=== PATIENT | male | born 1975 | race Caucasian/White ===

== ENCOUNTER 2020-07-24 11:10 | Emergency (ER) | payer MEDICAID ==
[~2020-07-24] VITALS: Ht 167.6 cm; Wt 114.0 kg
[2020-07-24] VITALS (10 sets, daily range): BP systolic 171–186; BP diastolic 89–95
[2020-07-24 12:03] LABS: BASOPHILS % 0.3 % (0.0-2.0); EOSINOPHILS % 2.3 % (0.0-5.0); HEMATOCRIT. 29.7 % (42.0-52.0); LYMPHOCYTES % 19.9 % (20.0-50.0); MEAN CORPUSCULAR HEMOGLOBIN 30.4 pg (28.0-32.0); MEAN CORPUSCULAR VOLUME 89.7 fL (80.0-94.0); MEAN PLATELET VOLUME 8.5 fl (7.4-10.4); MONOCYTES % 8.6 % (2.0-8.0); NEUTROPHILS % 68.9 % (40.0-76.0); PLATELET 204 x1000/uL (130-400); RED BLOOD CELL COUNT 3.31 mill/uL (4.7-6.1); RED CELL DISTRIBUTION WIDTH 14.8 % (11.6-14.6)
[2020-07-24 12:10] LABS: CHLORIDE 108 mEq/L (98-107)
[2020-07-24] MEDS ORDERED: CEFAZOLIN 1000MG PREMIX 50 ML IV SCH (12:45)
[2020-07-24] MEDS ORDERED: CEFAZOLIN 1000MG PREMIX 50 ML IV ONE (12:53)
[2020-07-24] MEDS ORDERED: LIDOCAINE HCL/EPINEPHRINE 1%-EPI 1:100,000 20 ML VIAL ONE (12:55)
[2020-07-24] MEDS ORDERED: LIDOCAINE HCL 1% 20ML VIAL (Pyxis) INJ ONE (12:56)
[2020-07-24] MEDS ORDERED: SODIUM BICARBONATE 4% (2.4MEQ) 5ML VIAL IV ONE (12:56)
[2020-07-24] MEDS ORDERED: IOHEXOL-300 50 ML BOTTLE IV ONE (12:56)
[2020-07-24] MEDS ORDERED: FENTANYL CITRATE/PF 50MCG/ML 2ML VIAL ONE (13:00)
[2020-07-24] MEDS ORDERED: FENTANYL CITRATE/PF 50MCG/ML 2ML VIAL IV NR (13:00)
[2020-10-02] MEDS ORDERED: FERR325T6 PO (16:33)
[2020-10-02] MEDS ORDERED: ATOR40TA70 PO (16:33)
[2020-10-02] MEDS ORDERED: LISI40TA13 PO (16:33)
[2020-10-02] MEDS ORDERED: GABA-529 PO (16:33)
[2020-10-02] MEDS ORDERED: AMLO10TA80 PO (16:33)
[2020-10-02] MEDS ORDERED: ATEN50TA PO (16:33)
[2020-10-02] MEDS ORDERED: CALC667T6 PO (16:33)
== END 2020-07-24 18:48 | disposition home or self-care (01) ==
LOC: ER 11:10 → SUPCPDRO 20:29
DX: T82.514A Breakdown (mechanical) of infusion catheter, initial encounter (principal); E11.22 Type 2 diabetes mellitus with diabetic chronic kidney disease; I12.9 Hypertensive chronic kidney disease with stage 1 through stage 4 chronic kidney disease, or unspecified chronic kidney disease; N18.9 Chronic kidney disease, unspecified; Z20.822 Contact with and (suspected) exposure to COVID-19
CPT/HCPCS: 36415; 36558; 71045; 77001; 80053; 85025; 85610; 87426; 93005; 96365; 99285; C1750; C1769; J0690; J1642; J3010; J3490; Q9967; Z7610

== ENCOUNTER 2021-10-13 09:49 | Inpatient (IN) | payer MEDICAID, OTHER ==
[~2021-10-13] VITALS: Ht 165.1 cm; Wt 133.4 kg
[~2021-10-13 09:49] MED LIST: AMLO10TA80 PO; ATEN50TA PO; ATOR40TA70 PO; CALC667T6 PO; FERR325T6 PO; GABA-529 PO; LISI40TA13 PO
[2021-10-13 10:53] LABS: BASOPHILS % 0.3 % (0.0-2.0); EOSINOPHILS % 2.6 % (0.0-5.0); HEMATOCRIT. 28.9 % (42.0-52.0); HEMOGLOBIN. 9.3 g/dL (14.0-18.0); LYMPHOCYTES % 20.7 % (20.0-50.0); MEAN CORPUSCULAR HEMOGLOBIN 31.7 pg (28.0-32.0); MEAN CORPUSCULAR VOLUME 98.3 fL (80.0-94.0); MEAN PLATELET VOLUME 9.4 fl (7.4-10.4); MONOCYTES % 8.2 % (2.0-8.0); NEUTROPHILS % 68.2 % (40.0-76.0); PLATELET 154 x1000/uL (130-400); RED BLOOD CELL COUNT 2.94 mill/uL (4.7-6.1); RED CELL DISTRIBUTION WIDTH 15.5 % (11.6-14.6)
[2021-10-13] MEDS ORDERED: CEFAZOLIN 1000MG PREMIX 50 ML IV NR (11:00)
[2021-10-13 11:01] LABS: CHLORIDE 104 mEq/L (98-107); INR 1.1; PROTHROMBIN TIME 11.6 sec (9.6-11.0)
[2021-10-13] MEDS ORDERED: DEXTROSE 50% WATER 50ML SYRINGE IV ONE (11:30)
[2021-10-13] MEDS ORDERED: SODIUM BICARBONATE 8.4% 1 MEQ/ML 50ML SYR IV ONE (11:30)
[2021-10-13] MEDS ORDERED: ALBUTEROL (0.083%) 2.5MG/3ML NEB HHN ONE (11:30)
[2021-10-13] MEDS ORDERED: INSULIN REGULAR (HUMULIN R) 300UNITS/3ML VIAL IV ONE (11:30)
[2021-10-13] MEDS ORDERED: ALBUTEROL (0.083%) 2.5MG/3ML NEB HHN NR (12:00)
[2021-10-13] MEDS ORDERED: DEXTROSE 50% WATER 50ML SYRINGE IV NR (12:00)
[2021-10-13] MEDS ORDERED: INSULIN REGULAR (HUMULIN R) 300UNITS/3ML VIAL IV NR (12:00)
[2021-10-13] MEDS ORDERED: SODIUM BICARBONATE 8.4% 1 MEQ/ML 50ML SYR IV NR (12:00)
[2021-10-13] MEDS ORDERED: HEPARIN 1000 UNITS/ML 10ML ONE (12:45)
[2021-10-13 12:54] LABS: HEPATITIS B SURFACE ANTIGEN NEGATIVE
[2021-10-13] MEDS ORDERED: MAGNESIUM/ALUMINUM HYDROXIDE/SIMETHICONE 30ML UDC PO PRN (13:45)
[2021-10-13] MEDS ORDERED: DEXTROSE 50% WATER 50ML SYRINGE IV PRN (13:45)
[2021-10-13] MEDS ORDERED: IPRATROPIUM/ALBUTEROL 0.5-3(2.5)MG/3ML NEB NEB PRN (13:45)
[2021-10-13] MEDS ORDERED: ACETAMINOPHEN 325MG TABLET PO PRN ×2 (13:45)
[2021-10-13] MEDS ORDERED: ZOLPIDEM TARTRATE 5MG TABLET PO PRN (13:45)
[2021-10-13] MEDS ORDERED: GUAIFENESIN 200MG/10ML SUGAR FREE UDC PO PRN (13:45)
[2021-10-13] MEDS ORDERED: DOCUSATE SODIUM 100MG CAPSULE PO PRN (13:45)
[2021-10-13] MEDS ORDERED: DIPHENHYDRAMINE 50MG/ML VIAL IV PRN (13:45)
[2021-10-13] MEDS ORDERED: NITROGLYCERIN 0.4MG TABLET SL SL PRN (13:45)
[2021-10-13] MEDS ORDERED: CLONIDINE 0.1MG TABLET PO PRN (13:45)
[2021-10-13] MEDS ORDERED: ONDANSETRON HCL 4MG/2ML INJ IV PRN (13:45)
[2021-10-13] MEDS ORDERED: ENOXAPARIN 40MG/0.4ML SYR SUBCUT SCH (15:00)
[2021-10-13 15:10] LABS: LDL CHOLESTEROL 37 mg/dL (5-100)
[2021-10-13 15:11] LABS: CREATINE KINASE 307 IU/L (39-308)
[2021-10-13 15:12] LABS: HDL CHOLESTEROL 25 mg/dL (40-59)
[2021-10-13 15:17] LABS: CREATINE KINASE MB FRACTION 4.7 ng/mL (0.5-3.6)
[2021-10-13 15:19] LABS: TOTAL IRON BINDING CAPACITY 220 ug/dL (250-450)
[2021-10-13 16:01] LABS: FOLIC ACID (FOLATE) SERUM 8.8 ng/mL (>5.38)
[2021-10-13] MEDS: FAMOTIDINE 20MG TABLET PO SCH (16:32)
[2021-10-13] MEDS: BLOOD SUGAR DIAGNOSTIC STRIP TEST SCH ×2 (20:24→21:00)
[2021-10-13] MEDS: INSULIN LISPRO 100 UNITS/ML SUBCUT SCH ×2 (20:24→21:00)
[2021-10-13] MEDS: SEVELAMER CARBONATE 800 MG TABLET PO SCH (20:41)
[2021-10-13 22:00] VITALS: BP 159/71
[2021-10-14] VITALS (22 sets, daily range): BP systolic 116–174; BP diastolic 46–91
[2021-10-14 00:58] LABS: CREATINE KINASE MB FRACTION 4.7 ng/mL (0.5-3.6)
[2021-10-14] MEDS: BLOOD SUGAR DIAGNOSTIC STRIP TEST SCH ×4 (06:46→21:00)
[2021-10-14 07:23] LABS: BASOPHILS % 0.3 % (0.0-2.0); EOSINOPHILS % 2.1 % (0.0-5.0); HEMATOCRIT. 29.5 % (42.0-52.0); HEMOGLOBIN. 9.8 g/dL (14.0-18.0); LYMPHOCYTES % 16.9 % (20.0-50.0); MEAN CORPUSCULAR HEMOGLOBIN 32.4 pg (28.0-32.0); MEAN PLATELET VOLUME 9.6 fl (7.4-10.4); MONOCYTES % 9.5 % (2.0-8.0); NEUTROPHILS % 71.2 % (40.0-76.0); PLATELET 163 x1000/uL (130-400); RED BLOOD CELL COUNT 3.04 mill/uL (4.7-6.1); RED CELL DISTRIBUTION WIDTH 15.3 % (11.6-14.6)
[2021-10-14] MEDS: SEVELAMER CARBONATE 800 MG TABLET PO SCH ×3 (07:39→18:18)
[2021-10-14 07:49] LABS: CHLORIDE 105 mEq/L (98-107)
[2021-10-14 08:00] LABS: PHOSPHORUS 3.6 mg/dL (2.5-4.9)
[2021-10-14] MEDS: INSULIN LISPRO 100 UNITS/ML SUBCUT SCH ×4 (08:00→22:53)
[2021-10-14] MEDS ORDERED: CEFAZOLIN 1000MG PREMIX 50 ML IV NR (08:00)
[2021-10-14] MEDS ORDERED: ASPIRIN 325MG EC TABLET PO SCH (09:00)
[2021-10-14] MEDS: AMLODIPINE 10MG TABLET PO SCH (09:00)
[2021-10-14] MEDS: FAMOTIDINE 20MG TABLET PO SCH (09:00)
[2021-10-14] MEDS ORDERED: HEPARIN 1000 UNITS/ML 10ML ONE (10:16)
[2021-10-14] MEDS ORDERED: LIDOCAINE HCL 1% 20ML VIAL (Pyxis) INJ ONE (10:17)
[2021-10-14] MEDS ORDERED: FENTANYL CITRATE/PF 50MCG/ML 2ML VIAL ONE (10:25)
[2021-10-14] MEDS ORDERED: FENTANYL CITRATE/PF 50MCG/ML 2ML VIAL IV ONE (11:00)
[2021-10-14] MEDS ORDERED: HEPARIN SODIUM 1,000 UNIT/1ML VIAL IV NR (17:00)
[2021-10-15] VITALS (12 sets, daily range): BP systolic 101–174; BP diastolic 51–115
[2021-10-15] MEDS: BLOOD SUGAR DIAGNOSTIC STRIP TEST SCH ×4 (06:39→21:00)
[2021-10-15] MEDS: INSULIN LISPRO 100 UNITS/ML SUBCUT SCH ×4 (08:00→21:07)
[2021-10-15] MEDS: AMLODIPINE 10MG TABLET PO SCH (09:16)
[2021-10-15] MEDS: SEVELAMER CARBONATE 800 MG TABLET PO SCH ×3 (09:16→20:57)
[2021-10-15] MEDS: FAMOTIDINE 20MG TABLET PO SCH (09:16)
[2021-10-15 11:53] LABS: BASOPHILS % 0.4 % (0.0-2.0); EOSINOPHILS % 2.3 % (0.0-5.0); HEMATOCRIT. 27.3 % (42.0-52.0); HEMOGLOBIN. 9.1 g/dL (14.0-18.0); LYMPHOCYTES % 19.4 % (20.0-50.0); MEAN CORPUSCULAR HEMOGLOBIN 32.2 pg (28.0-32.0); MEAN CORPUSCULAR VOLUME 96.4 fL (80.0-94.0); MEAN PLATELET VOLUME 9.3 fl (7.4-10.4); MONOCYTES % 9.4 % (2.0-8.0); NEUTROPHILS % 68.5 % (40.0-76.0); PLATELET 158 x1000/uL (130-400); RED BLOOD CELL COUNT 2.83 mill/uL (4.7-6.1); RED CELL DISTRIBUTION WIDTH 15.4 % (11.6-14.6)
[2021-10-16] VITALS (19 sets, daily range): BP systolic 93–154; BP diastolic 52–89
[2021-10-16] MEDS: BLOOD SUGAR DIAGNOSTIC STRIP TEST SCH ×4 (07:02→21:00)
[2021-10-16] MEDS: SEVELAMER CARBONATE 800 MG TABLET PO SCH ×3 (07:53→17:57)
[2021-10-16] MEDS: FAMOTIDINE 20MG TABLET PO SCH (07:53)
[2021-10-16] MEDS: AMLODIPINE 10MG TABLET PO SCH (07:54)
[2021-10-16 08:07] LABS: BASOPHILS % 0.2 % (0.0-2.0); EOSINOPHILS % 2.6 % (0.0-5.0); HEMATOCRIT. 28.5 % (42.0-52.0); HEMOGLOBIN. 9.5 g/dL (14.0-18.0); LYMPHOCYTES % 20.1 % (20.0-50.0); MEAN CORPUSCULAR HEMOGLOBIN 32.2 pg (28.0-32.0); MEAN CORPUSCULAR VOLUME 96.9 fL (80.0-94.0); MEAN PLATELET VOLUME 9.3 fl (7.4-10.4); MONOCYTES % 8.3 % (2.0-8.0); NEUTROPHILS % 68.8 % (40.0-76.0); PLATELET 162 x1000/uL (130-400); RED BLOOD CELL COUNT 2.94 mill/uL (4.7-6.1); RED CELL DISTRIBUTION WIDTH 15.2 % (11.6-14.6)
[2021-10-16] MEDS: INSULIN LISPRO 100 UNITS/ML SUBCUT SCH ×4 (08:11→21:04)
[2021-10-16] MEDS ORDERED: HEPARIN SODIUM 1,000 UNIT/1ML VIAL IV NR (11:17)
[2021-10-17] VITALS (8 sets, daily range): BP systolic 130–146; BP diastolic 67–109
[2021-10-17 06:28] LABS: BASOPHILS % 0.3 % (0.0-2.0); EOSINOPHILS % 2.5 % (0.0-5.0); HEMATOCRIT. 28.1 % (42.0-52.0); HEMOGLOBIN. 9.4 g/dL (14.0-18.0); LYMPHOCYTES % 17.7 % (20.0-50.0); MEAN CORPUSCULAR HEMOGLOBIN 32.4 pg (28.0-32.0); MEAN CORPUSCULAR VOLUME 96.8 fL (80.0-94.0); MONOCYTES % 9.2 % (2.0-8.0); NEUTROPHILS % 70.3 % (40.0-76.0); PLATELET 164 x1000/uL (130-400); RED BLOOD CELL COUNT 2.91 mill/uL (4.7-6.1); RED CELL DISTRIBUTION WIDTH 15.2 % (11.6-14.6)
[2021-10-17] MEDS: BLOOD SUGAR DIAGNOSTIC STRIP TEST SCH ×2 (07:02→12:22)
[2021-10-17] MEDS: AMLODIPINE 10MG TABLET PO SCH (09:01)
[2021-10-17] MEDS: INSULIN LISPRO 100 UNITS/ML SUBCUT SCH ×2 (09:01→13:23)
[2021-10-17] MEDS: FAMOTIDINE 20MG TABLET PO SCH (09:01)
[2021-10-17] MEDS: SEVELAMER CARBONATE 800 MG TABLET PO SCH ×2 (09:48→13:24)
== END 2021-10-17 16:00 | disposition home or self-care (01) | DRG 466 ==
LOC: ER 10:14 → 5EST 11:37 → ENRESERV 18:59 → EDBEDREQ 21:18 → EDBEDREQTM 21:18 → EDBEDREQ 21:19 → 5EST 23:28
PROVIDERS: ADMIT Internal Medicine; ATTEND Internal Medicine
PROC: 5A1D70Z Performance of Urinary Filtration, Intermittent, Less than 6 Hours Per Day (ICD-10-PCS; 2021-10-13)
PROC: 0JPV3XZ Removal of Tunneled Vascular Access Device from Upper Extremity Subcutaneous Tissue and Fascia, Percutaneous Approach (ICD-10-PCS; principal; 2021-10-14)
PROC: 0JH63XZ Insertion of Tunneled Vascular Access Device into Chest Subcutaneous Tissue and Fascia, Percutaneous Approach (ICD-10-PCS; 2021-10-14)
PROC: 02PYX3Z Removal of Infusion Device from Great Vessel, External Approach (ICD-10-PCS; 2021-10-14)
PROC: 02HV33Z Insertion of Infusion Device into Superior Vena Cava, Percutaneous Approach (ICD-10-PCS; 2021-10-14)
PROC: B518ZZA Fluoroscopy of Superior Vena Cava, Guidance (ICD-10-PCS; 2021-10-14)
PROC: B548ZZA Ultrasonography of Superior Vena Cava, Guidance (ICD-10-PCS; 2021-10-14)
PROC: 5A1D70Z Performance of Urinary Filtration, Intermittent, Less than 6 Hours Per Day (ICD-10-PCS; 2021-10-14)
DX: T82.41XA Breakdown (mechanical) of vascular dialysis catheter, initial encounter (principal); N18.6 End stage renal disease; I50.33 Acute on chronic diastolic (congestive) heart failure; E44.1 Mild protein-calorie malnutrition; E11.22 Type 2 diabetes mellitus with diabetic chronic kidney disease; D63.8 Anemia in other chronic diseases classified elsewhere; E83.51 Hypocalcemia; E87.1 Hypo-osmolality and hyponatremia; E11.42 Type 2 diabetes mellitus with diabetic polyneuropathy; E11.51 Type 2 diabetes mellitus with diabetic peripheral angiopathy without gangrene; Z20.822 Contact with and (suspected) exposure to COVID-19; E78.00 Pure hypercholesterolemia, unspecified; E87.5 Hyperkalemia; Y83.8 Other surgical procedures as the cause of abnormal reaction of the patient, or of later complication, without mention of misadventure at the time of the procedure; I13.2 Hypertensive heart and chronic kidney disease with heart failure and with stage 5 chronic kidney disease, or end stage renal disease; Z89.512 Acquired absence of left leg below knee; Z99.2 Dependence on renal dialysis; Z79.899 Other long term (current) drug therapy; Z68.42 Body mass index [BMI] 45.0-49.9, adult; Y92.89 Other specified places as the place of occurrence of the external cause; Z79.4 Long term (current) use of insulin
CPT/HCPCS: 36415; 36558; 71045; 77001; 80048; 80053; 80061; 82550; 82553; 82607; 82746; 82962; 83036; 83540; 83550; 83735; 84100; 84443; 84484; 85025; 86705; 86709; 86803; 87340; 87426; 93005; 93306; 93970; 99152; 99153; 99291; C1750; C1769; J0690; J1644; J1650; J1815; J2405; J3010; J3490; G0500

== ENCOUNTER 2022-02-14 13:33 | Inpatient (IN) | payer OTHER ==
[~2022-02-14] VITALS: Ht 165.1 cm; Wt 131.1 kg
[2022-02-14] MEDS ORDERED: MORPHINE SULFATE 4 MG/ML CPJ (NOT FOR IM USE) IV STA (13:48)
[2022-02-14] MEDS ORDERED: ONDANSETRON HCL 4MG/2ML INJ IV STA (13:48)
[2022-02-14] MEDS ORDERED: SODIUM CHLORIDE 0.9% 1,000 ML IV ONE (14:00)
[2022-02-14] MEDS ORDERED: CLONIDINE 0.2MG TABLET PO ONE (14:00)
[2022-02-14 16:25] LABS: BASOPHILS % 0.6 % (0.0-2.0); EOSINOPHILS % 2.4 % (0.0-5.0); HEMATOCRIT. 29.8 % (42.0-52.0); HEMOGLOBIN. 10.1 g/dL (14.0-18.0); LYMPHOCYTES % 11.5 % (20.0-50.0); MEAN CORPUSCULAR HEMOGLOBIN 32.4 pg (28.0-32.0); MEAN CORPUSCULAR VOLUME 95.3 fL (80.0-94.0); MEAN PLATELET VOLUME 8.9 fl (7.4-10.4); MONOCYTES % 8.4 % (2.0-8.0); NEUTROPHILS % 77.1 % (40.0-76.0); PLATELET 213 x1000/uL (130-400); RED BLOOD CELL COUNT 3.13 mill/uL (4.7-6.1); RED CELL DISTRIBUTION WIDTH 16.5 % (11.6-14.6)
[2022-02-14] MEDS ORDERED: AZITHROMYCIN 500MG/250ML 250 ML IV ONE (16:30)
[2022-02-14] MEDS ORDERED: CEFTRIAXONE 1 G PREMIX 50 ML IV ONE (16:30)
[2022-02-14 16:35] LABS: CHLORIDE 100 mEq/L (98-107)
[2022-02-14 18:37] LABS: CLARITY URINE CLEAR (CLEAR); COLOR URINE YELLOW (YELLOW); KETONES URINE NEGATIVE (NEGATIVE); LEUKOCYTE ESTERASE URINE NEGATIVE (NEGATIVE); NITRITE URINE NEGATIVE (NEGATIVE); OCCULT BLOOD URINE 2+ (NEGATIVE); PROTEIN URINE 2+ (NEGATIVE); SPECIFIC GRAVITY URINE 1.006 (1.005-1.030); UROBILINOGEN URINE 0.2 E.U./dL (0.2-1.0)
[2022-02-14] MEDS ORDERED: ONDANSETRON HCL 4MG/2ML INJ IV NR (19:15)
[2022-02-14] MEDS ORDERED: AZITHROMYCIN 500MG/250ML 250 ML IV NR (19:15)
[2022-02-14] MEDS ORDERED: CLONIDINE 0.2MG TABLET PO NR (19:15)
[2022-02-14] MEDS ORDERED: CEFTRIAXONE 1 G PREMIX 50 ML IV NR (19:15)
[2022-02-14] MEDS ORDERED: MORPHINE SULFATE 4 MG/ML CPJ (NOT FOR IM USE) IV NR (19:15)
[2022-02-15 03:05] VITALS: BP 153/82
[2022-02-15] MEDS ORDERED: INSU100I28 SQ (03:38)
[2022-02-15] MEDS ORDERED: INSU100V37 SQ (03:38)
[2022-02-15] MEDS ORDERED: MORPHINE SULFATE 2 MG/ML CPJ (NOT FOR IM USE) IV PRN (05:30)
[2022-02-15] MEDS ORDERED: HYDROCODONE/ACETAMINOPHEN 5/325MG TABLET PO PRN (05:30)
[2022-02-15] MEDS ORDERED: ONDANSETRON HCL 4MG/2ML INJ IV PRN (05:30)
[2022-02-15] MEDS: BLOOD SUGAR DIAGNOSTIC STRIP TEST SCH ×4 (05:57→21:28)
[2022-02-15] MEDS ORDERED: NALOXONE HCL 0.4MG/ML VIAL IV PRN (06:00)
[2022-02-15] MEDS ORDERED: DEXTROSE 50% WATER 50ML SYRINGE IV PRN (06:00)
[2022-02-15] MEDS: INSULIN LISPRO 100 UNITS/ML SUBCUT SCH ×4 (07:50→21:29)
[2022-02-15 08:00] VITALS: BP 160/84
[2022-02-15] MEDS: FERROUS SULFATE 325MG TABLET PO SCH ×2 (08:39→17:15)
[2022-02-15] MEDS: ATORVASTATIN CALCIUM 40MG TABLET PO SCH ×2 (08:40→21:28)
[2022-02-15] MEDS: LISINOPRIL 40MG TABLET PO SCH (08:41)
[2022-02-15] MEDS: AMLODIPINE 10MG TABLET PO SCH (08:41)
[2022-02-15] MEDS: CALCIUM ACETATE 667MG CAPSULE PO SCH ×4 (08:41→21:28)
[2022-02-15] MEDS: ATENOLOL 50 MG TABLET PO SCH (08:43)
[2022-02-15 12:00] VITALS: BP 148/73
[2022-02-15] MEDS: DOCUSATE SODIUM 250MG CAPSULE PO SCH (14:13)
[2022-02-15] MEDS: CLOTRIMAZOLE 1% CREAM 15GM TOP SCH (14:13)
[2022-02-15 14:49] LABS: HEPATITIS B SURFACE ANTIGEN NEGATIVE
[2022-02-15 15:53] VITALS: BP 108/74
[2022-02-15] MEDS: OMEPRAZOLE 20MG CAPSULE EXTENDED RELEASE PO SCH (17:15)
[2022-02-15 20:00] VITALS: BP 153/79
[2022-02-16] VITALS (7 sets, daily range): BP systolic 143–159; BP diastolic 50–88
[2022-02-16] MEDS: BLOOD SUGAR DIAGNOSTIC STRIP TEST SCH ×3 (06:52→17:20)
[2022-02-16] MEDS: INSULIN LISPRO 100 UNITS/ML SUBCUT SCH ×3 (07:50→18:26)
[2022-02-16] MEDS ORDERED: GABAPENTIN 100MG CAPSULE PO SCH (09:00)
[2022-02-16] MEDS: AMLODIPINE 10MG TABLET PO SCH (09:00)
[2022-02-16] MEDS: ATENOLOL 50 MG TABLET PO SCH (09:00)
[2022-02-16] MEDS: LISINOPRIL 40MG TABLET PO SCH (09:00)
[2022-02-16] MEDS ORDERED: LACTULOSE 20G/30ML UDC PO NR (10:00)
[2022-02-16] MEDS: DOCUSATE SODIUM 250MG CAPSULE PO SCH (10:54)
[2022-02-16] MEDS: CALCIUM ACETATE 667MG CAPSULE PO SCH ×3 (10:54→18:25)
[2022-02-16] MEDS: CLOTRIMAZOLE 1% CREAM 15GM TOP SCH (10:54)
[2022-02-16] MEDS: OMEPRAZOLE 20MG CAPSULE EXTENDED RELEASE PO SCH (10:54)
[2022-02-16] MEDS: FERROUS SULFATE 325MG TABLET PO SCH ×2 (10:54→18:25)
[2022-02-16 11:21] LABS: BASOPHILS % 0.5 % (0.0-2.0); EOSINOPHILS % 3.9 % (0.0-5.0); HEMATOCRIT. 29.4 % (42.0-52.0); HEMOGLOBIN. 9.8 g/dL (14.0-18.0); LYMPHOCYTES % 20.2 % (20.0-50.0); MEAN CORPUSCULAR HEMOGLOBIN 32.2 pg (28.0-32.0); MEAN CORPUSCULAR VOLUME 96.9 fL (80.0-94.0); MEAN PLATELET VOLUME 8.1 fl (7.4-10.4); MONOCYTES % 10.8 % (2.0-8.0); NEUTROPHILS % 64.6 % (40.0-76.0); PLATELET 202 x1000/uL (130-400); RED BLOOD CELL COUNT 3.04 mill/uL (4.7-6.1); RED CELL DISTRIBUTION WIDTH 16.5 % (11.6-14.6)
== END 2022-02-16 20:40 | disposition home or self-care (01) | DRG 241 ==
LOC: ER 13:42 → 6WST 19:04 → EDBEDREQ 19:06 → ENRESERV 02-15 02:04
PROVIDERS: ADMIT Internal Medicine; ATTEND Internal Medicine
DX: K29.70 Gastritis, unspecified, without bleeding (principal); I12.0 Hypertensive chronic kidney disease with stage 5 chronic kidney disease or end stage renal disease; E44.1 Mild protein-calorie malnutrition; N18.6 End stage renal disease; E11.22 Type 2 diabetes mellitus with diabetic chronic kidney disease; E87.1 Hypo-osmolality and hyponatremia; D63.1 Anemia in chronic kidney disease; Z20.822 Contact with and (suspected) exposure to COVID-19; K21.9 Gastro-esophageal reflux disease without esophagitis; K59.00 Constipation, unspecified; B35.1 Tinea unguium; E11.51 Type 2 diabetes mellitus with diabetic peripheral angiopathy without gangrene; E66.01 Morbid (severe) obesity due to excess calories; Z99.2 Dependence on renal dialysis; Z89.512 Acquired absence of left leg below knee; Z68.42 Body mass index [BMI] 45.0-49.9, adult
CPT/HCPCS: 36415; 71045; 74176; 76700; 80048; 80053; 81003; 82962; 83036; 83605; 83880; 84484; 85025; 86705; 86709; 86803; 87340; 87426; 93005; 99285; C9803; J0456; J0696; J1815; J2270; J2405; J7030